=== PATIENT | female | born 1965 | race Caucasian/White ===

== ENCOUNTER 2017-07-09 22:48 | Emergency (ER) | payer SELFPAY, MEDICAID | END 2017-07-10 03:13 | disposition left against medical advice (07) | LOC: FTE 22:48 | DX: Z53.21 Procedure and treatment not carried out due to patient leaving prior to being seen by health care provider (principal) ==

== ENCOUNTER 2017-07-10 04:05 | Emergency (ER) | payer MEDICAID ==
[2017-07-10] MEDS: KETOROLAC 60 MG INJ IM (05:15)
== END 2017-07-10 06:53 | disposition home or self-care (01) ==
LOC: FTE 04:05
DX: J20.9 Acute bronchitis, unspecified (principal); Z79.82 Long term (current) use of aspirin; Z79.84 Long term (current) use of oral hypoglycemic drugs
CPT/HCPCS: 96372; 99284-25

== ENCOUNTER 2017-07-13 01:25 | Emergency (ER) | payer MEDICAID ==
[2017-07-13] MEDS: IPRATROPIUM (NEB) 0.5 MG/2.5 ML AMP HHN (04:03)
[2017-07-13] MEDS: LEVALBUTEROL (NEB) 1.25 MG/0.5 ML AMP HHN (04:03)
== END 2017-07-13 04:27 | disposition home or self-care (01) ==
LOC: E/R 01:25
DX: J20.9 Acute bronchitis, unspecified (principal); Z79.82 Long term (current) use of aspirin; Z79.84 Long term (current) use of oral hypoglycemic drugs
CPT/HCPCS: 94664; 99284-25

== ENCOUNTER → 2018-08-23 | Emergency (ER) | payer MEDICAID ==
[2018-08-23] MEDS: IBUPROFEN 800 MG TAB PO (08:54)
== END | disposition home or self-care (01) ==
LOC: FTE 08:12
DX: H92.02 Otalgia, left ear (principal)
CPT/HCPCS: 99282; Z7502

== ENCOUNTER 2018-11-20 09:53 | Emergency (ER) | payer MEDICAID | END 2018-11-20 10:59 | disposition home or self-care (01) | LOC: FTE 09:53 | DX: J40 Bronchitis, not specified as acute or chronic (principal); E11.9 Type 2 diabetes mellitus without complications; R07.9 Chest pain, unspecified; Z79.82 Long term (current) use of aspirin; Z79.84 Long term (current) use of oral hypoglycemic drugs | CPT/HCPCS: 71045; 93005; 99284-25 ==

== ENCOUNTER 2018-12-17 01:57 | Emergency (ER) | payer MEDICAID ==
[2018-12-17] MEDS: ACETAMINOPHEN 325 MG TAB PO (04:25)
[2018-12-17] MEDS: METHYLPREDNISOLONE 125 MG INJ IM (04:28)
== END 2018-12-17 04:37 | disposition home or self-care (01) ==
LOC: FTE 01:57
DX: J06.9 Acute upper respiratory infection, unspecified (principal); J01.90 Acute sinusitis, unspecified
CPT/HCPCS: 96372; 99284-25